=== PATIENT | female | born 1965 | race Caucasian/White ===

== ENCOUNTER → 2017-04-14 | Outpatient (CLI) | payer OTHER, BC, SELFPAY | PROVIDERS: Family Provider Family Medicine; Visit Provider Orthopaedic Surgery | DX: S62.665D Nondisplaced fracture of distal phalanx of left ring finger, subsequent encounter for fracture with routine healing (principal) | CPT/HCPCS: 73140 ==

== ENCOUNTER → 2017-05-12 14:19 | Outpatient (CLI) | payer OTHER, BC, SELFPAY ==
--- NOTE | 2017-05-12 14:26 | XR_ITS ---
XR finger LT min 2V CLINICAL INDICATION: ITS.REASON: follow up digit fracture ORDERING PHYSICIAN: Robert Valencia MD PATIENT AGE: 51 years COMPARISON: 04/14/2017 FINDINGS: Comminuted nondisplaced fracture once again noted involving the tuft of the distal phalanx of the fourth digit. Fracture lines are less obscure or with decreased prominence of the oblique fracture line on the lateral view indicating early healing. No significant displacement IMPRESSION: Healing tuft fracture of the distal phalanx of the fourth finger
== END ==
PROVIDERS: PCP Family Medicine; Visit Provider Orthopaedic Surgery
DX: S62.665D Nondisplaced fracture of distal phalanx of left ring finger, subsequent encounter for fracture with routine healing (principal)
CPT/HCPCS: 73140

== ENCOUNTER → 2018-08-08 15:38 | Outpatient (POV) | payer BC, SELFPAY | PROVIDERS: Visit Provider Dermatology | DX: Z00.00 Encounter for general adult medical examination without abnormal findings (principal) ==

== ENCOUNTER → 2020-05-06 11:06 | Outpatient (POV) | payer BC, SELFPAY | PROVIDERS: Visit Provider Dermatology | DX: Z00.00 Encounter for general adult medical examination without abnormal findings (principal) ==

== ENCOUNTER 2020-09-27 18:06 | Emergency (ER) | payer BC, OTHER, SELFPAY ==
[2020-09-27 18:06] VITALS: BP 138/89; PULSE 84; RESP 19; TEMP 36.7; O2SAT 98; BMI 28.4
--- NOTE | 2020-09-27 18:45 | HMH.EDUTC ---
[facility] [place] Disposition Clinical Impression: Sinusitis Qualifiers: Sinusitis location: unspecified location Chronicity: unspecified Qualified Code(s): J32.9 - Chronic sinusitis, unspecified Disposition: Home, Self-Care Condition on Discharge: Good Instructions: Sinusitis, DI for Sinusitis Additional Instructions: *Monitor Temp, Over the counter Motrin or Tylenol as directed/as needed Tylenol every 4 hours and Motrin every 6 hours (as long as your family doctor has told you that you can take it) for fever or pain. and straight to ER if unable to lower temp less than 101.0 after medication given *Warm salt water gargles may help to soothe the throat if you are having throat irritation *Throat Lozenges *Warm fluids like tea with honey may help to soothe the throat and help to open nasal passages *Sleep elevated *Humidifier/Vaporizer *Flonase 2 sprays in each nostril daily but be aware that it may take 2-3 days before you notice improvement Take oral antibiotics as prescribed Return if needed Straight to ER if any life threatening symptoms Follow up IMMEDIATELY for new or worsening symptoms or no Noticeable improvement over the next 48-72 hours. 911 for difficulty breathing or swallowing Prescriptions: Amoxicillin/Potassium Clav [Augmentin 875-125 Tablet] 1 tab PO Q12H 7 Days #14 tab Transmission Status: Received by [facility] Fluticasone Propionate [Flonase 50mcg nasal spray 16gm] 1 spr NS DAILY #1 bottle Transmission Status: Received by [facility] Referrals: Lele Hampton MD [Primary Care Provider] - As needed Time of Disposition: 19:06 Medical Decision Making - Brennan Inquiry Pt receiving controlled substance: No Brennan was queried for this patient: No Vital Signs: 09/27/20 18:06 09/27/20 19:08 Temperature 98.1 F 98.1 F Temperature Source Oral Pulse Rate 84 Pulse Rate [Right Brachial] 84 Respiratory Rate 19 19 Blood Pressure 138/89 Blood Pressure [Right Arm] 138/89 Blood Pressure Mean [Right Arm] 105 Blood Pressure Source [Right Arm] Automatic Cuff Blood Pressure Position [Right Arm] Sitting 02 Sat by Pulse Oximetry 98 Oxygen Delivery Method Room Air Orders (Tests/Meds): ED MEDICATIONS Discontinued Medications Generic Name Dose Route Start Last Admin Trade Name Freq PRN Reason Stop Dose Admin Amoxicillin/Clavulanate Potassium 1 each 09/27/20 19:04 09/27/20 19:09 Amoxicillin/Pot Clavulan 500mg Tablet PO 09/27/20 19:05 1 each ONCE ONE Administration Protocol Medical Decision Narrative: Patient states that she has taken Augmentin several times in the past without reaction or complications [facility] [place] HPI - General Stated complaint: possible sinus infection, ear ache, nausea Time Seen by Provider: 09/27/20 18:45 Mode of Arrival: Ambulatory Source of Information: Patient Limitations: No Limitations Description of Symptoms (Recalled from Triage Doc. by RN): PATIENT C/O HEADACHE, EARACHE, NAUSEA, AND SINUS PAIN X 3 DAYS HEENT Symptoms (Recalled from RN notes): Yes Resp Symptoms (Recalled from RN notes): No Skin Symptoms (Recalled from RN notes): No MS Symptoms (Recalled from RN notes): No Functional Status (Recalled from RN notes): WNL - History of Present Illness Provider Complaint: Patient states that she hasnt felt well for a couple weeks and was taking over the counter medication for sinus pain and pressure States that over the last few days it has continued to get worse States that she is having pressure in her sinuses, pressure like feeling in upper teeth and right side of face and pain in her right ear States she feels like she may have a sinus infection again - Related Data Home Medications Medication Instructions Recorded Confirmed lisinopril 10 mg tablet 10 mg PO QDAY 05/12/17 02/13/18 Previous Rx's Medication Instructions Recorded Amoxicillin/Potassium Clav 1 tab PO Q12H 7 Days #14 tab 03/04/19 [Augmentin 875-125 Tablet]
[2020-09-27 19:08] VITALS: BP 138/89; PULSE 84; RESP 19; TEMP 36.7; O2SAT 98
== END 2020-09-27 19:12 | disposition home or self-care (01) ==
PROVIDERS: Emergency Provider Nurse Practitioner; PCP Family Medicine
DX: J32.9 Chronic sinusitis, unspecified (principal); I10 Essential (primary) hypertension
CPT/HCPCS: 99202; G0463

== ENCOUNTER 2020-12-04 09:09 | Emergency (ER) | payer BC, SELFPAY ==
[2020-12-04 09:09] VITALS: BP 143/73; PULSE 77; RESP 14; TEMP 36.8; O2SAT 100; BMI 27.4
--- NOTE | 2020-12-04 09:45 | HMH.EDUTC ---
[facility] [place]ression: Exposure to COVID-19 virus Disposition: Home, Self-Care Condition on Discharge: Good Instructions: DI for COVID-19 (Suspected or Confirmed ), Preventing the Spread of Coronavirus Discharge Instructions Additional Instructions: Drink plenty of fluids. Take tylenol for pain or fever. Return if you begin to have difficulty breathing. Follow up with your regular doctor. GO TO THE ER FOR ANY WORSENING SYMPTOMS Quarantine until you know the results of your covid-19 test. If it is positive, the health department should call you and give you further instructions about your length of Quarantine and other thing. Referrals: Lele Hampton MD [Primary Care Provider] - Time of Disposition: 09:46 Medical Decision Making - Medical Records Medical records reviewed: No: I reviewed the patient's medical records. - Brennan Inquiry Pt receiving controlled substance: No Vital Signs: 12/04/20 09:09 12/04/20 10:08 Temperature 98.3 F 98.3 F Temperature Source Oral Pulse Rate 77 Pulse Rate [Right] 77 Respiratory Rate 14 14 Blood Pressure 143/73 H Blood Pressure [Right Arm] 143/73 H Blood Pressure Mean [Right Arm] 96 02 Sat by Pulse Oximetry 100 [facility] [place] - General Stated complaint: covid exposure Time Seen by Provider: 12/04/20 09:45 Mode of Arrival: Ambulatory Description of Symptoms (Recalled from Triage Doc. by RN): pt requested covid test pt has no symptoms HEENT Symptoms (Recalled from RN notes): No Resp Symptoms (Recalled from RN notes): No Skin Symptoms (Recalled from RN notes): No MS Symptoms (Recalled from RN notes): No Functional Status (Recalled from RN notes): na - History of Present Illness Provider Complaint: She was exposed to covid-19 around 4 days ago. She denies any symptoms. She needs to be tested for work. - Related Data Home Medications Medication Instructions Recorded Confirmed lisinopril 10 mg tablet 10 mg PO QDAY 05/12/17 02/13/18 Previous Rx's Medication Instructions Recorded Amoxicillin/Potassium Clav 1 tab PO Q12H 7 Days #14 tab 03/04/19 [Augmentin 875-125 Tablet] Fluticasone Propionate [Flonase 2 spr NS DAILY #1 bottle 03/04/19 50mcg nasal spray 16gm] Ondansetron [Zofran 4mg ODT] 4 mg PO Q8HP PRN #10 tab.rapdis 03/04/19 Amoxicillin/Potassium Clav 1 tab PO Q12H 7 Days #14 tab 09/27/20 [Augmentin 875-125 Tablet] Fluticasone Propionate [Flonase 1 spr NS DAILY #1 bottle 09/27/20 50mcg nasal spray 16gm] Allergies Allergy/AdvReac Type Severity Reaction Status Date / Time No Known Allergies Allergy Verified 02/13/18 15:53 - Worker's Comp Is this a Worker's Comp case?: No [facility] History - Hepatitis A Screen Drug use history?: No High risk sexual behaviors?: No History of sexually transmitted infection?: No Currently employed?: No Childcare worker?: No Do you have indoor plumbing?: No Do you have electricity?: No Attestation statement:: This patient has been screened for Hepatitis A risk factors. I have reviewed the patient's past medical history: Yes Medical History: Reports:: Hypertension Other Surgeries: Yes: Hysterectomy-Total - Social History Smoking Status: Never smoker Alcohol Intake: never Occupational Status: other Family Hx:: Hypertension ROS Obtained: Yes All systems reviewed & no additional complaints - Constitutional Constitutional: Reports system reviewed and no additional complaints, except as docu - Eyes Eyes: Reports system reviewed and no additional complaints, except as docu - ENT Ears, Nose, Mouth, and Throat: Reports system reviewed and no additional complaints, except as docu - Cardiovascular Cardiovascular: Reports system reviewed and no additional complaints, except as docu - Respiratory Respiratory: Reports system reviewed and no additional complaints, except as docu - Gastrointestinal Gastrointestingal: Reports: system reviewed and no additio
[2020-12-04 10:08] VITALS: BP 143/73; PULSE 77; RESP 14; TEMP 36.8; O2SAT 99
== END 2020-12-04 10:10 | disposition home or self-care (01) ==
PROVIDERS: Emergency Provider Nurse Practitioner Family; PCP Family Medicine
DX: Z20.822 Contact with and (suspected) exposure to COVID-19 (principal); I10 Essential (primary) hypertension
CPT/HCPCS: 99202; G0463; U0003

== ENCOUNTER → 2020-12-29 11:39 | Outpatient (CLI) | payer BC, SELFPAY ==
[2020-12-29 13:02] VITALS: BP 132/74; PULSE 89; RESP 18; TEMP 36.9; O2SAT 96
== END ==
PROVIDERS: PCP Family Medicine; Visit Provider Family Medicine
DX: U07.1 COVID-19 (principal)
CPT/HCPCS: 96365

== ENCOUNTER → 2021-04-28 10:12 | Outpatient (CLI) | payer BC, SELFPAY ==
--- NOTE | 2021-04-28 10:18 | XR_ITS ---
FINAL REPORT CLINICAL HISTORY: RT SIDED LOW BACK PAIN; no injury FINDINGS: 5 views of the lumbar spine were obtained. There is no evidence of fracture or dislocation. The vertebral alignment is normal. There are mild degenerative changes with small osteophytes. No paraspinous soft tissue abnormalities identified. IMPRESSION: No acute bony abnormality. Reviewed, Interpreted and Dictated by Curtis Posada III, MD Transcribed by Lisa Morales Authenticated by Curtis Posada III, MD on 04/28/2021 11:21:46 AM [facility]
== END ==
LOC: RAD 10:14
PROVIDERS: PCP Family Medicine; Visit Provider Family Medicine
DX: M54.41 Lumbago with sciatica, right side (principal)
CPT/HCPCS: 72110

== ENCOUNTER 2021-07-14 11:47 | Emergency (ER) | payer BC, SELFPAY ==
[2021-07-14 14:10] VITALS: BP 149/73; PULSE 91; RESP 19; TEMP 37.2; O2SAT 98; BMI 28.6
[2021-07-14 14:26] LABS: UTC Influenza A Antigen Negative (Negative); UTC Influenza B Antigen Negative (Negative)
--- NOTE | 2021-07-14 14:36 | HMH.EDUTC ---
[facility] [place] Disposition Clinical Impression: Viral upper respiratory tract infection with cough Disposition: Home, Self-Care Condition on Discharge: Good Instructions: How to Avoid a Cold or Flu, Influenza, DI for Influenza -- Adult Additional Instructions: ? Start Tamiflu today if you are going to take it. Discussed risk and possible benefits. ? Lots of rest ? Increase Fluids water, Gatorade, powerade, pedialyte,if infant/toddler/child ? Alternate Tylenol and / or ibuprofen as discussed for fever, aches, chills Follow up IMMEDIATELY with your family doctor for new or worsening Symptoms OR no noticeable improvement over the next 48-72 hours, 911 for difficulty or breathing ? You or your child area contagious until no fever, aches, chills for 24 hours with medication for symptoms ? Help Prevent the spread of influenza: ? Wash your hands often. Use soap and water. Wash your hands after you use the bathroom, change a child's diapers, or sneeze. Wash your hands before you prepare or eat food. Use gel hand cleanser that has 60% alcohol, when soap and water are not available. Do not touch your eyes, nose, or mouth unless you have washed your hands first. ? Cover your mouth when you sneeze or cough. Cough into a tissue or the bend of your arm. If you use a tissue, throw it away immediately and wash your hands. ? Clean shared items with a germ-killing vacuum cleaner operator. Clean table surfaces, doorknobs, and light switches. Do not share towels, silverware, and dishes with people who are sick. Wash bed sheets, towels, silverware, and dishes with soap and water. ? Wear a mask over your mouth and nose if you are sick. The face mask may help protect others from becoming infected with the flu. Wear the mask when in common areas of your home or if you seek care with a healthcare provider. ? Stay away from others if you are sick. Stay at home until 24 hours after your fever and symptoms are gone. Prescriptions: Oseltamivir Phosphate [Tamiflu 75mg Capsule] 75 mg PO BID #10 cap Transmission Status: Pending to [id number] Referrals: Lele Hampton MD [Primary Care Provider] - As needed Forms: Work/School Release Time of Disposition: 15:30 Medical Decision Making - Brennan Inquiry Pt receiving controlled substance: No Brennan was queried for this patient: No Vital Signs: 07/14/21 14:10 Temperature 98.9 F Temperature Source Oral Pulse Rate [Left] 91 H Respiratory Rate 19 Blood Pressure [Right Arm] 149/73 H Blood Pressure Mean [Right Arm] 98 02 Sat by Pulse Oximetry 98 - Lab Data Lab results reviewed: Yes: I reviewed the patient's lab results. Lab Results 07/14/21 14:07: Influenza Type A Ag Negative, Influenza Type B Ag Negative 07/14/21 14:39: Group A Strep Rapid Negative Orders (Tests/Meds): ORDERS Category Date Time Status Strep Screen Confirmation Stat Micro 07/14/21 14:39 Received Medical Decision Narrative: still awaiting strep test from lab [facility] [place] HPI - General Stated complaint: fever/chills, sore throat, cough, h/a, body aches Time Seen by Provider: 07/14/21 14:36 Mode of Arrival: Ambulatory Source of Information: Patient Limitations: No Limitations Description of Symptoms (Recalled from Triage Doc. by RN): pt c/o body aches, cogestion, chills and a cough since yesterday. 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
[2021-07-14 15:26] LABS: Strep Scrn Group A (Rapid) Negative (Negative)
[2021-07-14 15:47] VITALS: BP 149/73; PULSE 91; RESP 19; TEMP 37.2
== END 2021-07-14 15:48 | disposition home or self-care (01) ==
PROVIDERS: Emergency Provider Nurse Practitioner; PCP Family Medicine
DX: J06.9 Acute upper respiratory infection, unspecified (principal); I10 Essential (primary) hypertension
CPT/HCPCS: 87430; 87804; 99212; G0463

== ENCOUNTER → 2021-07-28 15:56 | Outpatient (POV) | payer BC, SELFPAY | PROVIDERS: Visit Provider Dermatology | DX: Z00.00 Encounter for general adult medical examination without abnormal findings (principal) ==